=== PATIENT | male | born 1945 | race Caucasian/White ===

== ENCOUNTER 2016-09-25 12:47 | Inpatient (IN) | payer MEDICARE, OTHER ==
[~2016-09-25] VITALS: Ht 175.3 cm; Wt 110.9 kg
[~2016-09-25 12:47] MED LIST: 00186-0370-20 IH; ACTOS30 MG PO; ALBUTEROL0.83 MG/ML IH; BICALUTAMIDE50 MG PO; CALCIUM CARBON650 M2 PO; COZAAR100 MG PO; CRESTOR40 MG PO; ELIGARD22.5 M1 SQ; GLUCOPHAGE500 MG/TAB PO; GLUCOTROL10 MG PO; HYGROTON 2525 MG/TAB; METFORMIN500 MG PO; MULTI VITAMINS1 TAB PO; NATURE'S BLEN1000 IU PO; NORCO 325 MG-7.1 TAB PO; PROAIR HFA0.09 MG/AC IH; SPIRIVA RE2.5 MCG/Ac IH; ZANTAC 150150 MG; ZOCOR; ZOLADEX3.6 MG SC; [UNRECOGNIZED DRUG - OTHER] IV
[2016-11-18] MEDS ORDERED: MUCINEX D 12001 TER PO (15:09)
[2016-11-18] MEDS ORDERED: ROXICODONE 55 MG/TAB PO (15:10)
[2016-11-18] MEDS ORDERED: SPIRIVA RE2.5 MCG/Ac IH (15:11)
[2016-11-18] MEDS ORDERED: VITAMIN D 1001000 IU PO (15:12)
[2016-11-18] MEDS ORDERED: 00186-0370-20 IH (15:12)
[2016-11-19] VITALS (11 sets, daily range): BP systolic 107–135; BP diastolic 45–533; PULSE 59–71; TEMP 97.7–98.6
[2016-11-20] VITALS (7 sets, daily range): BP systolic 111–127; BP diastolic 40–61; PULSE 58–74; TEMP 97.5–98
[2016-11-20 06:37] LABS: HEMATOCRIT 28.5 % (42.0-52.0); HEMOGLOBIN 9.2 g/dl (13.5-18.0)
[2016-11-21 04:05] VITALS: BP 117/52; PULSE 75; TEMP 97.9
[2016-11-21 07:44] VITALS: BP 136/44; PULSE 99; TEMP 97.6
[2016-11-21 11:27] VITALS: BP 112/35; PULSE 85; TEMP 97.6
[2016-11-21 16:18] VITALS: BP 120/45; PULSE 90; TEMP 98.3
[2016-11-21 19:32] VITALS: BP 116/39; PULSE 56; TEMP 98.4
[2016-11-22 00:32] VITALS: BP 122/63; PULSE 70; TEMP 98.5
[2016-11-22 05:21] VITALS: BP 137/45; PULSE 89; TEMP 97.9
[2016-11-22] MEDS ORDERED: ROXICODONE 55 MG/TAB PO (07:00)
[2016-11-22] MEDS ORDERED: NORCO 325 MG-7.1 TAB PO (07:01)
[2016-11-22] MEDS ORDERED: ASPIRIN 32325 MG/TAB PO (07:07)
[2016-11-22 07:50] VITALS: BP 117/45; PULSE 87; TEMP 99.2
[2016-11-22 09:07] VITALS: BP 117/45; PULSE 87; TEMP 99.2
== END 2016-11-22 10:15 | disposition swing bed (61) | DRG 470 ==
LOC: SURG 11-19 05:20 → JCC 11-19 07:30
PROVIDERS: Orthopaedic Surgery
PROC: 0SRB0JA Replacement of Left Hip Joint with Synthetic Substitute, Uncemented, Open Approach (ICD-10-PCS; principal; 2016-11-19 07:30)
DX: M16.12 Unilateral primary osteoarthritis, left hip (principal); C79.51 Secondary malignant neoplasm of bone; C61 Malignant neoplasm of prostate; J44.9 Chronic obstructive pulmonary disease, unspecified; E11.9 Type 2 diabetes mellitus without complications; I10 Essential (primary) hypertension; Z87.891 Personal history of nicotine dependence
CPT/HCPCS: 99222; 99232-AI; 99233-AI; A4315; A9284; C1713; C1776; J0690; J1100; J1815; J2250; J2270; J2405; J2704; J7030; J7050

== ENCOUNTER → 2016-11-06 | Outpatient (CLI) | payer MEDICARE, OTHER ==
[~2016-11-06] MED LIST changes: +ASPIRIN 32325 MG/TAB PO; +MUCINEX D 12001 TER PO; +ROXICODONE 55 MG/TAB PO; +VITAMIN D 1001000 IU PO
[2016-11-06 17:44] LABS: HIV 1/2 Antibodies Non-Reactive; HIV-1p24 Antigen Non-Reactive
== END ==
LOC: COL.LAB 16:58
PROVIDERS: Orthopaedic Surgery
DX: Z01.812 Encounter for preprocedural laboratory examination (principal); M25.852 Other specified joint disorders, left hip

== ENCOUNTER → 2017-11-11 | Outpatient (CLI) | payer MEDICARE, OTHER ==
[~2017-11-11] MED LIST changes: -ASPIRIN 32325 MG/TAB PO; +ASPIRIN 81M81 MG/TA2 PO; +GLUCOTROL 5M5 MG/TAB PO; -NATURE'S BLEN1000 IU PO; +PERIDEX (CHLOR480 ML MM; +SINGULAIR 110 MG/TAB PO; +ZANTAC 150MG T150 MG PO; +[UNRECOGNIZED DRUG - OTHER] PO
[2017-11-11 11:24] LABS: MEAN CELL VOLUME 91 fl (80.0-100.0); MEAN CORPUSCULAR HGB CONC 33 g/dl (33.0-37.0); MEAN PLATELET VOLUME 9.4 fl (7.4-10.4); PLATELET COUNT 150 K/mm3 (130-400); RED BLOOD COUNT 3.93 M/mm3 (4.20-5.60); REDCELL DISTRIBUTION WIDTH-CV 13.6 % (11.5-14.5)
[2017-11-11 11:29] LABS: HEMATOCRIT 35.7 % (42.0-52.0); HEMOGLOBIN 11.6 g/dl (13.5-18.0); MEAN CORPUSCULAR HEMOGLOBIN 30 pg (27.0-31.0)
[2017-11-11 11:47] LABS: ERYTHROCYTE SEDIMENTATION RATE 25 mm/hr (0-30)
== END ==
LOC: COL.LAB 10:53
PROVIDERS: Orthopaedic Surgery
DX: M25.552 Pain in left hip (principal); Z96.642 Presence of left artificial hip joint

== ENCOUNTER → 2017-11-17 | Outpatient (CLI) | payer MEDICARE, OTHER | LOC: COL.RAD 12:05 | DX: M25.552 Pain in left hip (principal); Z96.642 Presence of left artificial hip joint; M16.11 Unilateral primary osteoarthritis, right hip ==

== ENCOUNTER → 2018-10-25 | Outpatient (CLI) | payer MEDICARE, OTHER | LOC: COL.LAB 15:30 | DX: Z96.642 Presence of left artificial hip joint (principal) ==

== ENCOUNTER 2018-10-26 11:13 | Inpatient (IN) | payer MEDICARE, OTHER ==
[~2018-10-26] VITALS: Ht 172.7 cm; Wt 109.1 kg
[~2018-10-26 11:13] MED LIST changes: -VITAMIN D 1001000 IU PO; +VITAMIN D31000 I1 PO
[2018-12-01] VITALS (11 sets, daily range): BP systolic 98–135; BP diastolic 39–86; PULSE 58–95; TEMP 97.7–98.1
[2018-12-01] MEDS ORDERED: UNIPHYL 400MG400 MG PO (06:07)
--- NOTE | 2018-12-01 06:14 | NUR ---
arrived on unit at 0510 per WC, prepped for surgery without incident, explanation given to patient and his on going to and returning from surgery, verbalizes understanding
--- NOTE | 2018-12-01 09:09 | NUR ---
Initial visit attempt; Patient out of room, Panelboard Tank Pumper offered encouragement and God's blessings to patient's letting her know of the availability of spiritual care for Arley and his family.
--- NOTE | 2018-12-01 13:10 | NUR ---
returned to room per bed from PACU, awake and alert, IV infusing and placed on pump at 125ml/hr, O2 on at 3L/NC, SCDS and KRISH hose on bilaterally, aquacel dressing to left hip CD&I with ice in place, has sensation to top of thigh on right and abdomen on the left, unable to move lower extremities, maradiaga cath patent draining clear yellow urine, rolled to side and no wrinkles in linens or wires under patient, full assessment completed, see interventions for further info, denies needs
--- NOTE | 2018-12-01 13:30 | NUR ---
Racheal Duarte notified of consult
--- NOTE | 2018-12-01 13:45 | NUR ---
now at bedside, cardiopulmonary in to see patient and SUSHILA Duarte in to see patient
--- NOTE | 2018-12-01 14:00 | NUR ---
LAYLA Lester in to see patient, cardiopulmunoary in and will place on CPAP
--- NOTE | 2018-12-01 14:30 | NUR ---
sppears to be sleeping and CPAP is now on and O2 sats 100%, does not arouse when pedal pulses checked
--- NOTE | 2018-12-01 14:46 | NUR ---
TIMO brooks met with patient's (Liv) while patient was resting after surgery. Patient lives with his in [place]. Patient's PCP is Dr. Macias and he receives his medications from [facility] in [place]. Patient uses a walker but reports the patient is independent with ADLs. Patient's reports that they do not have a DPOA-HC completed and were not interested in completing one at this time. Patient's plan post-hospitalization was to go to [facility] for a short rehab stay. TIMO student presented and explained the patient-choice form. Patient's verbalized understanding and preferred 1) [facility] and 2) [facility]. Patient's signed form. TIMO student provided a copy. TIMO to contact and fax referras to [facility] and [facility]. TIMO to continue to follow.
--- NOTE | 2018-12-01 15:00 | NUR ---
CPAP on but awakens easily, has minimal sensation to knee bilaterally and unable to move lower extremities, denies needs
--- NOTE | 2018-12-01 16:00 | NUR ---
awake asking for phone and this was provided, has minimal sensation to ankle bilaterally and remains unable to move lower extremities,
--- NOTE | 2018-12-01 16:58 | NUR ---
awake now and asking to order something to eat, assisted with ordering, has gross motor movement to bilateral lower extremities,
--- NOTE | 2018-12-01 17:45 | NUR ---
sitting up in bed eating supper and tolerates well, is now able to wiggle his toes
--- NOTE | 2018-12-01 18:50 | NUR ---
bedside shift report given to Argenis Peacock and Lili RN
[2018-12-01 20:25] LABS: HEMOGLOBIN 10.1 g/dl (13.5-18.0)
[2018-12-01 20:27] LABS: HEMATOCRIT 31.3 % (42.0-52.0)
--- NOTE | 2018-12-01 20:33 | NUR ---
Dr. Salcedo notified of patient's H&H results, no new orders at this time.
[2018-12-02] VITALS: BP 124/57; PULSE 88; TEMP 98.1
--- NOTE | 2018-12-02 01:29 | NUR ---
Patient resting in bed upon assessment. Noted to have numbness to left leg. Noted to be pale, but Hemoglobin 10.1. Requested pain medication. Noted to be effective.
[2018-12-02 03:54] VITALS: BP 123/85; PULSE 75; TEMP 98.3
[2018-12-02 05:44] LABS: HEMATOCRIT 28.1 % (42.0-52.0); HEMOGLOBIN 9.1 g/dl (13.5-18.0)
[2018-12-02 05:52] LABS: CALCIUM 8.7 mg/dL (8.4-10.2); CREATININE, serum 0.93 (0.66-1.25); POTASSIUM 3.7 mmol/L (3.4-5.0)
--- NOTE | 2018-12-02 06:18 | NUR ---
Patient rested well throughout the night. Pain remained controlled. Currently resting in bed with eyes closed.
--- NOTE | 2018-12-02 06:56 | NUR ---
Report from Joceline KUMAR. and Madonna KUMAR>
--- NOTE | 2018-12-02 07:02 | NUR ---
Report given to JOSÉ Lucero
[2018-12-02 07:15] VITALS: BP 128/55; PULSE 77; TEMP 97.5
--- NOTE | 2018-12-02 09:03 | NUR ---
Patient has intermittent twitching of the upper extremities that began 3 days ago. Will continue to monitor.
[2018-12-02 12:46] VITALS: BP 119/49; PULSE 69; TEMP 97.4
--- NOTE | 2018-12-02 13:32 | NUR ---
Patient's pain level is consistent 8/10 during physical activity. He has been up to chair and ambulating with PT. Patient states that medication regimen works well for his pain control and lower extremities were elevated to promote comfort. Patient complied with VTE prophylaxis, KRISH hernandez and SCD's. Patient was offered breakfast and lunch but refused. Patient experienced mild dyspnea on exertion but overall, respiratory status was stable. Patient denies any further needs at this point. Reported off to primary nurse, Nic.
--- NOTE | 2018-12-02 14:53 | NUR ---
SO CATHETER DISCONTINUED PER ORDERS. PT TOLERATED WELL.
[2018-12-02 16:19] VITALS: BP 109/32; PULSE 73; TEMP 98.7
[2018-12-02] MEDS ORDERED: ASPI325T6 PO (16:38)
[2018-12-02] MEDS ORDERED: ROXICODONE 55 MG/TAB PO (16:38)
[2018-12-02] MEDS ORDERED: NORCO 325 MG-7.1 TAB PO (16:38)
--- NOTE | 2018-12-02 18:32 | NUR ---
Report to Noemi KUMAR.
[2018-12-02 20:00] VITALS: BP 124/46; PULSE 92; TEMP 98
--- NOTE | 2018-12-02 20:00 | NUR ---
REPORT RECEIVED. ASSUMED CARE FOR BUFFER INFLATED PAD. ASSESSMENT COMPLETE. VS STABLE. SITTING UP IN CHAIR AT THIS TIME. ASSISTED TO BATHROOM STAND BY ASSIST-VOIDED WITHOUT DIFFICULTY. AMBULATED APPROX 150 FEET USING WALKER WITH STANDBY ASSIST/GAIT BELT. TOLERATED WELL. AQUACELL DRESSING TO LEFT HIP-CLEAN DRY INTACT. ASSISTED BACK TO BED-POSITIONED PILLOWS FOR COMFORT AND FRESH ICE PACK APPLIED. DENIES ANY QUESTIONS AT THIS TIME. PAIN MEDICATION ADMINISTERED PER DR ORDER. CALL LIGHT WITHIN REACH. BED IN LOW POSITION/WHEELS LOCKED. WILL MONITOR.
[2018-12-03] VITALS: BP 132/40; PULSE 79; TEMP 98.3
[2018-12-03 04:00] VITALS: BP 120/43; PULSE 73; TEMP 98
[2018-12-03 06:32] LABS: HEMATOCRIT 26.2 % (42.0-52.0); HEMOGLOBIN 8.3 g/dl (13.5-18.0)
[2018-12-03 07:47] VITALS: BP 102/40; PULSE 74; TEMP 97.5
--- NOTE | 2018-12-03 09:35 | NUR ---
TIMO spoke with Dinora from [facility]. Patient has been accepted and will discharge there tomorrow. Dr. Salcedo will make the doc to doc call today. Accepting doctor is Dr. Remy ([phone]).
--- NOTE | 2018-12-03 10:36 | NUR ---
Follow-up visit; Patient thanked Environmental Studies Faculty Member for looking in on him and wishing him well.
[2018-12-03 12:20] VITALS: BP 129/96; PULSE 83; TEMP 97.8
[2018-12-03 16:09] VITALS: BP 126/48; PULSE 85; TEMP 98.6
[2018-12-03 20:30] VITALS: BP 118/45; PULSE 100; TEMP 97.1
--- NOTE | 2018-12-03 21:00 | NUR ---
Pt. sitting up at bedside. Pt. assisted to the bathroom with 1-sb assist, gait belt and walker. Pt. is A&OX3, assessment complete. INT to rt. ac patent. Offered pt. to ambulate in the halls at this time. Pt. refused further ambulation. Pt. repositioned in bed for comfort. Pt. refused SCD's. Dressing to lt. hip CDI with aquacell. Ice pack to lt. hip. Pt. reports pain at a 6 on pain scale. Gave pain meds per orders. Pt. denies further needs, call light within reach.
[2018-12-04] VITALS: BP 105/53; PULSE 104; TEMP 98.2
--- NOTE | 2018-12-04 06:58 | NUR ---
Report from Navjot KUMAR.
--- NOTE | 2018-12-04 07:35 | NUR ---
pt up to BR with SBA x1, steady gait. returned to recliner. dressing to left hip CDI.
[2018-12-04 07:40] LABS: BASO % 0.7 % (0.0-2.0); EOS # 0.2 (0.0-0.7); EOS % 3.7 % (0-4.0); GRAN % 65.9 % (42.2-75.2); LYMPH # 1.2 (1.2-3.4); LYMPH % 19.7 % (20.0-51.0); MEAN CELL VOLUME 91 fl (80.0-100.0); MEAN CORPUSCULAR HGB CONC 32 g/dl (33.0-37.0); MONO # 0.6 (0.1-0.6); MONO % 9.5 % (1.7-9.3); PLATELET COUNT 113 K/mm3 (130-400); RED BLOOD COUNT 2.78 M/mm3 (4.20-5.60); REDCELL DISTRIBUTION WIDTH-CV 13.4 % (11.5-14.5)
[2018-12-04 07:49] LABS: HEMATOCRIT 25.4 % (42.0-52.0); HEMOGLOBIN 8.1 g/dl (13.5-18.0); MEAN CORPUSCULAR HEMOGLOBIN 29 pg (27.0-31.0)
[2018-12-04 08:20] VITALS: BP 148/49; PULSE 79; TEMP 97.6
--- NOTE | 2018-12-04 08:28 | NUR ---
PT REFUSING TO WORK WITH THERAPY THIS AM. NO BREAKFAST ORDERED. PT WANTS TO BE TRANSFERED TO [facility] TODAY.
--- NOTE | 2018-12-04 11:04 | NUR ---
REPORT TO CHARGE NURSE @ [facility]. DISCHARGE PACKED GIVEN TO PATIENT. PATEINT TAKEN BY WHEEL CHAIR TO FRONT FOR DISCAHRGE.
--- NOTE | 2018-12-04 11:06 | NUR ---
INT FROM [facility] DISCONTINUED THIS AM.
== END 2018-12-04 11:06 | disposition swing bed (61) | DRG 468 ==
LOC: JCC 12-01 05:02
PROVIDERS: Nurse Practitioner Family; Physician Assistant; ADMIT Orthopaedic Surgery
PROC: 0SPS0JZ Removal of Synthetic Substitute from Left Hip Joint, Femoral Surface, Open Approach (ICD-10-PCS; 2018-12-01)
PROC: 0SPB09Z Removal of Liner from Left Hip Joint, Open Approach (ICD-10-PCS; 2018-12-01)
PROC: 0SUS09Z Supplement Left Hip Joint, Femoral Surface with Liner, Open Approach (ICD-10-PCS; 2018-12-01)
PROC: 0SRS0JA Replacement of Left Hip Joint, Femoral Surface with Synthetic Substitute, Uncemented, Open Approach (ICD-10-PCS; principal; 2018-12-01 07:30)
DX: T84.031A Mechanical loosening of internal left hip prosthetic joint, initial encounter (principal); I10 Essential (primary) hypertension; E11.9 Type 2 diabetes mellitus without complications; J44.9 Chronic obstructive pulmonary disease, unspecified; Z85.830 Personal history of malignant neoplasm of bone; Z87.891 Personal history of nicotine dependence; Z85.46 Personal history of malignant neoplasm of prostate; G47.33 Obstructive sleep apnea (adult) (pediatric); E78.5 Hyperlipidemia, unspecified; D64.9 Anemia, unspecified
CPT/HCPCS: 99222; 99231-AI; A4314; A9284; C1776; J0690; J1815; J2250; J2370; J2405; J2704; J3010; J7030; J7050